=== PATIENT | female | born 1965 | race Caucasian/White ===

== ENCOUNTER → 2017-04-12 | Outpatient (CLI) | payer BC ==
[~2017-04-12] MED LIST: DIVA-18 PO; LAM1 PO; LINA5TAB PO
== END | disposition home or self-care (01) ==
LOC: MRI 12:47
PROVIDERS: ATTEND Family Medicine
DX: S83.512A Sprain of anterior cruciate ligament of left knee, initial encounter (principal); M94.262 Chondromalacia, left knee; X58.XXXA Exposure to other specified factors, initial encounter; M17.12 Unilateral primary osteoarthritis, left knee; Y93.89 Activity, other specified; Y92.89 Other specified places as the place of occurrence of the external cause; Y99.8 Other external cause status
CPT/HCPCS: 73721

== ENCOUNTER → 2017-05-24 | Outpatient (CLI) | payer BC | END | disposition home or self-care (01) | LOC: MAMMO 10:09 | PROVIDERS: ATTEND Internal Medicine | DX: Z12.31 Encounter for screening mammogram for malignant neoplasm of breast (principal) | CPT/HCPCS: G0202 ==

== ENCOUNTER → 2017-06-14 | Outpatient (CLI) | payer BC ==
[2017-06-14 12:54] LABS: BASOPHILS % 0.6 % (0.0-2.0); EOSINOPHILS % 1.8 % (0.0-5.0); HEMATOCRIT. 42.3 % (36.0-48.0); HEMOGLOBIN. 14.1 g/dL (12.0-16.0); MEAN CORPUSCULAR HEMOGLOBIN 31.5 pg (28.0-32.0); MEAN CORPUSCULAR VOLUME 94.3 fL (81.0-99.0); MEAN PLATELET VOLUME 6.5 fl (7.4-10.4); MONOCYTES % 6.6 % (2.0-8.0); PLATELET 369 x1000/uL (130-400); RED BLOOD CELL COUNT 4.48 mill/uL (4.2-5.4); RED CELL DISTRIBUTION WIDTH 13.6 % (11.6-14.6)
[2017-06-14 13:17] LABS: KETONES URINE NEGATIVE (NEGATIVE); LEUKOCYTE ESTERASE URINE NEGATIVE (NEGATIVE); NITRITE URINE NEGATIVE (NEGATIVE); OCCULT BLOOD URINE NEGATIVE (NEGATIVE); PROTEIN URINE NEGATIVE (NEGATIVE); SPECIFIC GRAVITY URINE 1.019 (1.005-1.030); UROBILINOGEN URINE 0.2 E.U./dL (0.2-1.0)
[2017-06-14 13:23] LABS: CLARITY URINE CLEAR (CLEAR); COLOR URINE YELLOW (YELLOW)
[2017-06-14 14:51] LABS: TRIOIODOTHYRONINE TOTAL 1.63 ng/ml (0.60-1.81)
[2017-06-15 02:14] LABS: CARBON DIOXIDE 31 mEq/L (21-32); CHLORIDE 103 mEq/L (98-107); HDL CHOLESTEROL 50 mg/dL (40-59); LDL CHOLESTEROL 141 mg/dL (5-100)
[2017-06-15 02:16] LABS: T4 FREE 1.15 ng/dL (0.76-1.46)
[2017-06-15 10:11] LABS: *CREATININE RANDOM URINE 95.5 mg/dL (Not Estab.); MICROALBUMIN RANDOM URINE 5.7 ug/mL (Not Estab.)
== END | disposition home or self-care (01) ==
LOC: LAB 11:57
PROVIDERS: ATTEND Internal Medicine
DX: Z00.01 Encounter for general adult medical examination with abnormal findings (principal); E11.9 Type 2 diabetes mellitus without complications; G47.33 Obstructive sleep apnea (adult) (pediatric)
CPT/HCPCS: 36415; 80053; 80165; 81003; 82043; 82306; 82465; 82570; 82607; 82746; 83036; 83718; 83721; 84439; 84443; 84480; 84481; 84550; 85025; 87086

== ENCOUNTER → 2018-03-12 | Outpatient (CLI) | payer BC ==
[2018-03-12 15:20] LABS: BASOPHILS % 0.3 % (0.0-2.0); CHLORIDE 101 mEq/L (98-107); EOSINOPHILS % 1.2 % (0.0-5.0); HEMATOCRIT. 42.3 % (36.0-48.0); HEMOGLOBIN. 14.1 g/dL (12.0-16.0); LYMPHOCYTES % 45.7 % (20.0-50.0); MEAN CORPUSCULAR HEMOGLOBIN 31.8 pg (28.0-32.0); MEAN CORPUSCULAR VOLUME 95.3 fL (81.0-99.0); MEAN PLATELET VOLUME 7.1 fl (7.4-10.4); NEUTROPHILS % 46.8 % (40.0-76.0); PLATELET 310 x1000/uL (130-400); RED BLOOD CELL COUNT 4.44 mill/uL (4.2-5.4); RED CELL DISTRIBUTION WIDTH 13.9 % (11.6-14.6)
[2018-03-12 15:31] LABS: CLARITY URINE CLEAR (CLEAR); COLOR URINE YELLOW (YELLOW); KETONES URINE TRACE (NEGATIVE); LDL CHOLESTEROL 168 mg/dL (5-100); LEUKOCYTE ESTERASE URINE NEGATIVE (NEGATIVE); NITRITE URINE NEGATIVE (NEGATIVE); OCCULT BLOOD URINE NEGATIVE (NEGATIVE); PH URINE 5.5 (4.5-8.0); PROTEIN URINE NEGATIVE (NEGATIVE); SPECIFIC GRAVITY URINE 1.025 (1.005-1.030); UROBILINOGEN URINE 0.2 E.U./dL (0.2-1.0)
[2018-03-12 15:33] LABS: HDL CHOLESTEROL 46 mg/dL (40-59); T4 FREE 1.04 ng/dL (0.76-1.46)
[2018-03-12 15:58] LABS: VITAMIN B12 SERUM 408 pg/mL (211-911)
[2018-03-14 13:11] LABS: *CREATININE RANDOM URINE 151.5 mg/dL (Not Estab.); MICROALBUMIN RANDOM URINE 7.6 ug/mL (Not Estab.)
== END | disposition home or self-care (01) ==
LOC: LAB 13:22
PROVIDERS: ATTEND Internal Medicine
DX: K43.9 Ventral hernia without obstruction or gangrene (principal); F31.77 Bipolar disorder, in partial remission, most recent episode mixed; E11.69 Type 2 diabetes mellitus with other specified complication
CPT/HCPCS: 36415; 80053; 80061; 80165; 81003; 82043; 82306; 82570; 82607; 83036; 84439; 84443; 84550; 85025; 87086

== ENCOUNTER → 2018-11-01 | Outpatient (CLI) | payer BC ==
[2018-11-01 09:06] LABS: CLARITY URINE CLEAR (CLEAR); COLOR URINE YELLOW (YELLOW); KETONES URINE NEGATIVE (NEGATIVE); LEUKOCYTE ESTERASE URINE NEGATIVE (NEGATIVE); NITRITE URINE NEGATIVE (NEGATIVE); OCCULT BLOOD URINE NEGATIVE (NEGATIVE); PROTEIN URINE NEGATIVE (NEGATIVE); SPECIFIC GRAVITY URINE 1.019 (1.005-1.030); UROBILINOGEN URINE 0.2 E.U./dL (0.2-1.0)
[2018-11-01 09:09] LABS: BASOPHILS % 0.6 % (0.0-2.0); EOSINOPHILS % 1.7 % (0.0-5.0); LYMPHOCYTES % 37.1 % (20.0-50.0); MEAN CORPUSCULAR HEMOGLOBIN 31.7 pg (28.0-32.0); MEAN PLATELET VOLUME 6.8 fl (7.4-10.4); MONOCYTES % 7.2 % (2.0-8.0); NEUTROPHILS % 53.4 % (40.0-76.0); PLATELET 306 x1000/uL (130-400); RED BLOOD CELL COUNT 4.42 mill/uL (4.2-5.4); RED CELL DISTRIBUTION WIDTH 13.9 % (11.6-14.6)
[2018-11-01 09:12] LABS: CHLORIDE 108 mEq/L (98-107)
[2018-11-01 09:21] LABS: HDL CHOLESTEROL 51 mg/dL (40-59); LDL CHOLESTEROL 150 mg/dL (5-100); T4 FREE 0.98 ng/dL (0.76-1.46)
[2018-11-01 09:53] LABS: VITAMIN B12 SERUM 404 pg/mL (211-911)
[2018-11-02 10:06] LABS: *CREATININE RANDOM URINE 110.1 mg/dL (Not Estab.); MICROALBUMIN RANDOM URINE 4.6 ug/mL (Not Estab.)
== END | disposition home or self-care (01) ==
LOC: LAB 08:31
PROVIDERS: ATTEND Internal Medicine
DX: E11.69 Type 2 diabetes mellitus with other specified complication (principal); K43.9 Ventral hernia without obstruction or gangrene
CPT/HCPCS: 36415; 80061; 80165; 82043; 82306; 82570; 82607; 83036; 84439; 84443; 84550

== ENCOUNTER → 2018-11-21 | Outpatient (CLI) | payer BC ==
[2018-11-21 13:18] LABS: CHLORIDE 105 mEq/L (98-107)
[2018-11-21 13:22] LABS: BASOPHILS % 0.4 % (0.0-2.0); EOSINOPHILS % 0.9 % (0.0-5.0); HEMATOCRIT. 42.9 % (36.0-48.0); HEMOGLOBIN. 14.4 g/dL (12.0-16.0); LYMPHOCYTES % 34.6 % (20.0-50.0); MEAN CORPUSCULAR VOLUME 95.4 fL (81.0-99.0); MEAN PLATELET VOLUME 6.7 fl (7.4-10.4); MONOCYTES % 6.5 % (2.0-8.0); NEUTROPHILS % 57.6 % (40.0-76.0); PLATELET 280 x1000/uL (130-400); RED CELL DISTRIBUTION WIDTH 13.9 % (11.6-14.6)
== END | disposition home or self-care (01) ==
LOC: LAB 12:46
PROVIDERS: ATTEND Psychiatry & Neurology Psychiatry
DX: F31.9 Bipolar disorder, unspecified (principal)
CPT/HCPCS: 36415; 80165

== ENCOUNTER → 2019-02-05 | Outpatient (CLI) | payer BC ==
[~2019-02-05] MED LIST changes: +REGADENOSON 0.4 MG/5 ML IV ONE
== END | disposition home or self-care (01) ==
LOC: NM 09:05
PROVIDERS: ATTEND Specialist
DX: I07.1 Rheumatic tricuspid insufficiency (principal); I27.20 Pulmonary hypertension, unspecified
CPT/HCPCS: 78452; 93017; 93306; A9500; J2785

== ENCOUNTER → 2020-08-26 | Outpatient (CLI) | payer BC ==
[~2020-08-26] MED LIST changes: -REGADENOSON 0.4 MG/5 ML IV ONE
[2020-08-26 09:48] LABS: BASOPHILS % 0.7 % (0.0-2.0); EOSINOPHILS % 1.4 % (0.0-5.0); HEMATOCRIT. 43.9 % (36.0-48.0); HEMOGLOBIN. 14.5 g/dL (12.0-16.0); MEAN CORPUSCULAR HEMOGLOBIN 31.4 pg (28.0-32.0); MEAN CORPUSCULAR VOLUME 94.7 fL (81.0-99.0); MEAN PLATELET VOLUME 6.7 fl (7.4-10.4); MONOCYTES % 5.5 % (2.0-8.0); NEUTROPHILS % 53.4 % (40.0-76.0); PLATELET 333 x1000/uL (130-400); RED BLOOD CELL COUNT 4.64 mill/uL (4.2-5.4); RED CELL DISTRIBUTION WIDTH 13.5 % (11.6-14.6)
[2020-08-26 09:52] LABS: CHLORIDE 106 mEq/L (98-107)
[2020-08-26 10:01] LABS: LDL CHOLESTEROL 172 mg/dL (5-100)
[2020-08-26 10:04] LABS: HDL CHOLESTEROL 58 mg/dL (40-59)
[2020-08-26 10:48] LABS: CLARITY URINE CLEAR (CLEAR); COLOR URINE YELLOW (YELLOW); KETONES URINE NEGATIVE (NEGATIVE); LEUKOCYTE ESTERASE URINE TRACE (NEGATIVE); NITRITE URINE NEGATIVE (NEGATIVE); OCCULT BLOOD URINE NEGATIVE (NEGATIVE); PROTEIN URINE NEGATIVE (NEGATIVE); SPECIFIC GRAVITY URINE 1.022 (1.005-1.030); UROBILINOGEN URINE 0.2 E.U./dL (0.2-1.0)
[2020-08-31 15:35] LABS: MICROALBUMIN RANDOM URINE 5.6 ug/mL (Not Estab.)
== END | disposition home or self-care (01) ==
LOC: LAB 08:37
PROVIDERS: ATTEND Internal Medicine Critical Care Medicine
DX: Z12.11 Encounter for screening for malignant neoplasm of colon (principal); Z00.00 Encounter for general adult medical examination without abnormal findings; Z11.52 Encounter for screening for COVID-19; E11.69 Type 2 diabetes mellitus with other specified complication; E03.9 Hypothyroidism, unspecified; R94.5 Abnormal results of liver function studies; E78.5 Hyperlipidemia, unspecified; D75.1 Secondary polycythemia
CPT/HCPCS: 36415; 80053; 80061; 81003; 82043; 82570; 83036; 84443; 85025; 86803

== ENCOUNTER → 2021-03-14 | Outpatient (CLI) | payer BC | END | disposition home or self-care (01) | LOC: LAB 13:58 | PROVIDERS: ATTEND Specialist | DX: K43.9 Ventral hernia without obstruction or gangrene (principal) | CPT/HCPCS: 36415; 82565; 84520 ==

== ENCOUNTER → 2021-03-15 | Outpatient (CLI) | payer BC ==
[~2021-03-15] MED LIST changes: +ALBUTEROL (0.083%) 2.5MG/3ML NEB ONE
== END | disposition home or self-care (01) ==
LOC: PF 13:05
PROVIDERS: ATTEND Internal Medicine Pulmonary Disease
DX: G47.33 Obstructive sleep apnea (adult) (pediatric) (principal); J45.909 Unspecified asthma, uncomplicated; R06.09 Other forms of dyspnea; Z20.822 Contact with and (suspected) exposure to COVID-19
CPT/HCPCS: 87426; 94060; 94727; 94729; Z7610

== ENCOUNTER → 2021-03-21 | Outpatient (CLI) | payer BC ==
[~2021-03-21] MED LIST changes: -ALBUTEROL (0.083%) 2.5MG/3ML NEB ONE; +BARIUM SULFATE 450ML ORAL SUSP ONE; +IOHEXOL-300 100 ML BOTTLE ONE
== END | disposition home or self-care (01) ==
LOC: CT 11:43
PROVIDERS: ATTEND Specialist
DX: K42.9 Umbilical hernia without obstruction or gangrene (principal); K43.9 Ventral hernia without obstruction or gangrene; I70.90 Unspecified atherosclerosis
CPT/HCPCS: 74177; Q9967

== ENCOUNTER → 2021-05-30 | Outpatient (CLI) | payer BC ==
[~2021-05-30] MED LIST changes: -BARIUM SULFATE 450ML ORAL SUSP ONE; -IOHEXOL-300 100 ML BOTTLE ONE
== END | disposition home or self-care (01) ==
LOC: RAD 10:15
PROVIDERS: ATTEND Internal Medicine Pulmonary Disease
DX: J98.11 Atelectasis (principal); G47.33 Obstructive sleep apnea (adult) (pediatric)
CPT/HCPCS: 71046

== ENCOUNTER → 2021-07-11 | Outpatient (CLI) | payer BC ==
[2021-07-11 08:12] LABS: PARTIAL THROMBOPLASTIN TIME 27.8 sec (23.4-31.0); PROTHROMBIN TIME 10.3 sec (9.6-11.0)
[2021-07-11 08:29] LABS: BASOPHILS % 0.4 % (0.0-2.0); EOSINOPHILS % 1.3 % (0.0-5.0); HEMATOCRIT. 41.4 % (36.0-48.0); HEMOGLOBIN. 13.8 g/dL (12.0-16.0); LYMPHOCYTES % 35.7 % (20.0-50.0); MEAN CORPUSCULAR HEMOGLOBIN 31.9 pg (28.0-32.0); MEAN CORPUSCULAR VOLUME 95.5 fL (81.0-99.0); MEAN PLATELET VOLUME 6.7 fl (7.4-10.4); MONOCYTES % 7.7 % (2.0-8.0); NEUTROPHILS % 54.9 % (40.0-76.0); PLATELET 332 x1000/uL (130-400); RED BLOOD CELL COUNT 4.33 mill/uL (4.2-5.4); RED CELL DISTRIBUTION WIDTH 13.3 % (11.6-14.6)
[2021-07-11 08:49] LABS: CHLORIDE 109 mEq/L (98-107)
[2021-07-11 09:09] LABS: HDL CHOLESTEROL 44 mg/dL (40-59)
[2021-07-11 09:11] LABS: LDL CHOLESTEROL 138 mg/dL (5-100)
[2021-07-11 09:30] LABS: CLARITY URINE CLEAR (CLEAR); COLOR URINE YELLOW (YELLOW); PH URINE 5.5 (4.5-8.0); SPECIFIC GRAVITY URINE 1.024 (1.005-1.030)
[2021-07-11 09:31] LABS: KETONES URINE NEGATIVE (NEGATIVE); LEUKOCYTE ESTERASE URINE NEGATIVE (NEGATIVE); NITRITE URINE NEGATIVE (NEGATIVE); OCCULT BLOOD URINE NEGATIVE (NEGATIVE); PROTEIN URINE NEGATIVE (NEGATIVE); UROBILINOGEN URINE 0.2 E.U./dL (0.2-1.0)
== END | disposition home or self-care (01) ==
LOC: LAB 07:16
DX: Z01.818 Encounter for other preprocedural examination (principal); E11.69 Type 2 diabetes mellitus with other specified complication; E78.2 Mixed hyperlipidemia
CPT/HCPCS: 36415; 80048; 80061; 81003; 83036; 85025

== ENCOUNTER → 2021-07-21 | Outpatient (CLI) | payer BC | END | disposition home or self-care (01) | LOC: CT 12:43 | PROVIDERS: ATTEND Internal Medicine Pulmonary Disease | DX: J98.4 Other disorders of lung (principal); K76.0 Fatty (change of) liver, not elsewhere classified; J45.909 Unspecified asthma, uncomplicated | CPT/HCPCS: 71250 ==

== ENCOUNTER → 2021-08-01 | Outpatient (CLI) | payer BC ==
[~2021-08-01] MED LIST changes: +ALBU90AE2 INH; +ARIP2TAB3 PO; +FLUT1BLS3 INH; +LAMO300T MT; +MONT10TA21 MT
== END | disposition home or self-care (01) ==
LOC: LAB 10:11
PROVIDERS: ATTEND Specialist
DX: Z20.822 Contact with and (suspected) exposure to COVID-19 (principal)
CPT/HCPCS: 87426

== ENCOUNTER 2021-08-02 06:01 | Inpatient (IN) | payer BC ==
[~2021-08-02] VITALS: Ht 154.9 cm; Wt 89.8 kg
[~2021-08-02 06:01] MED LIST changes: -ALBU90AE2 INH; -ARIP2TAB3 PO; -FLUT1BLS3 INH; -LAMO300T MT; -MONT10TA21 MT
[2021-08-02] MEDS ORDERED: LIDOCAINE HCL 1% 20ML VIAL (Pyxis) INJ ONE (06:28)
[2021-08-02] MEDS ORDERED: BUPIVACAINE HCL/PF 0.5% (5MG/ML) 10ML ONE (06:29)
[2021-08-02] MEDS ORDERED: POLYMYXIN B SULFATE 500000 UNITS/VIAL ONE (06:29)
[2021-08-02] MEDS ORDERED: SKIN ADHESIVE 0.7 GM EA TOP ONE (07:19)
[2021-08-02] MEDS ORDERED: PROPOFOL 200MG/20ML VIAL IV ONE (07:32)
[2021-08-02] MEDS ORDERED: MIDAZOLAM HCL 2 MG/2 ML VIAL ONE (07:32)
[2021-08-02] MEDS ORDERED: FENTANYL CITRATE/PF 50MCG/ML 2ML VIAL ONE (07:32)
[2021-08-02] MEDS ORDERED: ROCURONIUM BROMIDE 10MG/ML VIAL 5ML IV ONE ×2 (07:32→08:48)
[2021-08-02] MEDS ORDERED: ESMOLOL HCL 10MG/ML 10ML VIAL IV ONE (08:00)
[2021-08-02] MEDS ORDERED: FENTANYL CITRATE/PF 50MCG/ML 2ML VIAL IV PRN (08:15)
[2021-08-02] MEDS ORDERED: ONDANSETRON HCL 4MG/2ML INJ IV PRN ×2 (08:15→12:00)
[2021-08-02] MEDS ORDERED: MEPERIDINE HCL/PF 25MG/ML CPJ IV PRN (08:15)
[2021-08-02] MEDS ORDERED: HYDROMORPHONE HCL/PF 2MG/ML CPJ IV PRN (08:15)
[2021-08-02] MEDS ORDERED: HYDROMORPHONE HCL/PF 2MG/ML (OR) ONE (08:34)
[2021-08-02] MEDS ORDERED: KETOROLAC 30MG/ML VIAL ONE (08:54)
[2021-08-02] MEDS ORDERED: DEXAMETHASONE 4MG/ML 1ML VIAL ONE (08:54)
[2021-08-02] MEDS ORDERED: ONDANSETRON HCL 4MG/2ML INJ ONE (08:54)
[2021-08-02] MEDS ORDERED: LAMO300T MT (09:10)
[2021-08-02] MEDS ORDERED: ARIP2TAB3 PO (09:10)
[2021-08-02] MEDS ORDERED: FLUT1BLS3 INH (09:10)
[2021-08-02] MEDS ORDERED: MONT10TA21 MT (09:10)
[2021-08-02] MEDS ORDERED: ALBU90AE2 INH (09:10)
[2021-08-02] MEDS ORDERED: LABETALOL HCL 5MG/ML VIAL 20ML IV ONE (09:44)
[2021-08-02] MEDS ORDERED: PIPERACILLIN/TAZOBACTAM 3.375G in DEXT 5% WATER 50ML IV SCH (11:00)
[2021-08-02] MEDS ORDERED: NEOSTIGMINE METHYLSULFATE 1MG/ML 10 ML VIAL ONE (11:02)
[2021-08-02] MEDS ORDERED: GLYCOPYRROLATE 0.2 MG/ML 2ML VIAL ONE (11:02)
[2021-08-02] MEDS ORDERED: MORPHINE SULFATE 2 MG/ML CPJ (NOT FOR IM USE) IV PRN (12:00)
[2021-08-02 12:30] VITALS: BP 131/72
[2021-08-02 13:00] VITALS: BP 131/72
[2021-08-02] MEDS ORDERED: IPRATROPIUM/ALBUTEROL 0.5-3(2.5)MG/3ML NEB HHN PRN (14:30)
[2021-08-02] MEDS ORDERED: INFLUENZA VACCINE IM ONE (14:45)
[2021-08-02] MEDS ORDERED: PNEUMOCOCCAL VACCINE IM ONE (14:45)
[2021-08-02 15:42] LABS: HEMOGLOBIN. 13.4 g/dL (12.0-16.0); MEAN CORPUSCULAR HEMOGLOBIN 31.1 pg (28.0-32.0); MEAN CORPUSCULAR VOLUME 94.9 fL (81.0-99.0); MEAN PLATELET VOLUME 6.7 fl (7.4-10.4); PLATELET 330 x1000/uL (130-400); RED BLOOD CELL COUNT 4.32 mill/uL (4.2-5.4); RED CELL DISTRIBUTION WIDTH 13.7 % (11.6-14.6)
[2021-08-02] MEDS: ACETAMINOPHEN 650MG/20.3ML UDC PO SCH ×2 (15:53→19:02)
[2021-08-02] MEDS: KETOROLAC 30MG/ML VIAL IV SCH ×2 (15:54→19:02)
[2021-08-02] MEDS: FAMOTIDINE 20MG/2ML VIAL IV SCH (15:56)
[2021-08-02 15:58] LABS: CHLORIDE 109 mEq/L (98-107)
[2021-08-02 16:00] VITALS: BP 112/58
[2021-08-02 16:52] LABS: PLATELET ESTIMATE NORMAL
[2021-08-02 17:40] LABS: PROTHROMBIN TIME 10.4 sec (9.6-11.0)
[2021-08-02] MEDS: SODIUM CHLORIDE 0.45% 1,000 ML IV SCH (17:46)
[2021-08-02 17:49] VITALS: BP 118/64
[2021-08-02 20:00] VITALS: BP 129/75
[2021-08-02] MEDS: PIPERACILLIN/TAZOBACTAM 3.375 G in DEXTROSE 5% WATER 50 ML IV SCH (20:16)
[2021-08-02 22:57] LABS: CLARITY URINE TURBID (CLEAR); COLOR URINE YELLOW (YELLOW); KETONES URINE NEGATIVE (NEGATIVE); LEUKOCYTE ESTERASE URINE 1+ (NEGATIVE); NITRITE URINE NEGATIVE (NEGATIVE); OCCULT BLOOD URINE 2+ (NEGATIVE); PH URINE 5.5 (4.5-8.0); PROTEIN URINE TRACE (NEGATIVE); SPECIFIC GRAVITY URINE 1.029 (1.005-1.030); UROBILINOGEN URINE 0.2 E.U./dL (0.2-1.0)
[2021-08-03] VITALS: BP 99/54
[2021-08-03] MEDS: KETOROLAC 30MG/ML VIAL IV SCH ×4 (00:21→17:44)
[2021-08-03] MEDS: ACETAMINOPHEN 650MG/20.3ML UDC PO SCH ×4 (00:21→17:44)
[2021-08-03 04:00] VITALS: BP 138/75
[2021-08-03] MEDS: PIPERACILLIN/TAZOBACTAM 3.375 G in DEXTROSE 5% WATER 50 ML IV SCH ×3 (05:23→20:56)
[2021-08-03 07:40] LABS: CHLORIDE 107 mEq/L (98-107)
[2021-08-03 07:47] LABS: BASOPHILS % 0.2 % (0.0-2.0); EOSINOPHILS % 0.1 % (0.0-5.0); HEMATOCRIT. 37.1 % (36.0-48.0); HEMOGLOBIN. 12.5 g/dL (12.0-16.0); LYMPHOCYTES % 16.4 % (20.0-50.0); MEAN CORPUSCULAR HEMOGLOBIN 31.5 pg (28.0-32.0); MEAN CORPUSCULAR VOLUME 93.8 fL (81.0-99.0); MEAN PLATELET VOLUME 6.9 fl (7.4-10.4); MONOCYTES % 6.3 % (2.0-8.0); PLATELET 331 x1000/uL (130-400); RED BLOOD CELL COUNT 3.96 mill/uL (4.2-5.4); RED CELL DISTRIBUTION WIDTH 13.8 % (11.6-14.6)
[2021-08-03 07:54] LABS: LDL CHOLESTEROL 142 mg/dL (5-100)
[2021-08-03 07:56] LABS: HDL CHOLESTEROL 55 mg/dL (40-59); T4 FREE 1.19 ng/dL (0.76-1.46)
[2021-08-03 08:00] VITALS: BP 134/62
[2021-08-03] MEDS: MONTELUKAST SODIUM 10MG TABLET PO SCH (08:28)
[2021-08-03] MEDS: FAMOTIDINE 20MG/2ML VIAL IV SCH (08:28)
[2021-08-03] MEDS: ARIPIPRAZOLE 5MG TABLET PO SCH (08:29)
[2021-08-03] MEDS ORDERED: LAMOTRIGINE 300 MG PO SCH (09:00)
[2021-08-03] MEDS ORDERED: ALBUTEROL SULFATE INH SCH (09:00)
[2021-08-03] MEDS ORDERED: TRELEGY ELLIPTA ORI SCH (09:00)
[2021-08-03] MEDS ORDERED: LAMOTRIGINE 100MG TABLET PO SCH (10:00)
[2021-08-03] MEDS ORDERED: ALBUTEROL (0.083%) 2.5MG/3ML NEB HHN SCH (10:00)
[2021-08-03 12:00] VITALS: BP 167/82
[2021-08-03] MEDS ORDERED: NALOXONE HCL 0.4MG/ML VIAL IV PRN (13:45)
[2021-08-03 16:00] VITALS: BP 138/71
[2021-08-03 20:00] VITALS: BP_SYST 154; BP_SYST 168; BP_DIAS 54; BP_DIAS 69
[2021-08-04] VITALS: BP 152/59
[2021-08-04] MEDS: KETOROLAC 30MG/ML VIAL IV SCH ×3 (00:02→12:50)
[2021-08-04] MEDS: SODIUM CHLORIDE 0.45% 1,000 ML IV SCH (03:45)
[2021-08-04 04:00] VITALS: BP 140/74
[2021-08-04] MEDS: ACETAMINOPHEN 650MG/20.3ML UDC PO SCH ×3 (05:14→12:51)
[2021-08-04] MEDS: PIPERACILLIN/TAZOBACTAM 3.375 G in DEXTROSE 5% WATER 50 ML IV SCH (05:15)
[2021-08-04 07:45] LABS: BASOPHILS % 0.2 % (0.0-2.0); EOSINOPHILS % 1.6 % (0.0-5.0); HEMATOCRIT. 36.5 % (36.0-48.0); HEMOGLOBIN. 12.4 g/dL (12.0-16.0); LYMPHOCYTES % 19.6 % (20.0-50.0); MEAN CORPUSCULAR HEMOGLOBIN 32.4 pg (28.0-32.0); MEAN CORPUSCULAR VOLUME 95.2 fL (81.0-99.0); MEAN PLATELET VOLUME 6.9 fl (7.4-10.4); MONOCYTES % 4.7 % (2.0-8.0); NEUTROPHILS % 73.9 % (40.0-76.0); PLATELET 306 x1000/uL (130-400); RED BLOOD CELL COUNT 3.83 mill/uL (4.2-5.4); RED CELL DISTRIBUTION WIDTH 13.9 % (11.6-14.6)
[2021-08-04 08:11] LABS: CHLORIDE 107 mEq/L (98-107)
[2021-08-04] MEDS: MONTELUKAST SODIUM 10MG TABLET PO SCH (08:41)
[2021-08-04] MEDS: ARIPIPRAZOLE 5MG TABLET PO SCH (08:41)
[2021-08-04] MEDS ORDERED: LAMOTRIGINE 300 MG PO SCH (09:00)
[2021-08-04] MEDS ORDERED: NON FORMULARY PATIENT HOME MED XX SCH ×2 (09:00)
[2021-08-04] MEDS ORDERED: FAMOTIDINE 20MG TABLET PO SCH (09:00)
[2021-08-04] MEDS ORDERED: TRELEGY ELLIPTA ORI SCH (09:00)
[2021-08-04 12:06] VITALS: BP 160/88
[2021-08-04 12:50] VITALS: BP 160/88
== END 2021-08-04 13:58 | disposition home or self-care (01) | DRG 354 ==
LOC: OR 06:01 → 6EST 06:02
PROVIDERS: ADMIT Specialist; ATTEND Specialist
PROC: 0WUF4JZ Supplement Abdominal Wall with Synthetic Substitute, Percutaneous Endoscopic Approach (ICD-10-PCS; principal; 2021-08-02)
PROC: 5A09357 Assistance with Respiratory Ventilation, Less than 24 Consecutive Hours, Continuous Positive Airway Pressure (ICD-10-PCS; 2021-08-02)
DX: K43.2 Incisional hernia without obstruction or gangrene (principal); N39.0 Urinary tract infection, site not specified; C79.60 Secondary malignant neoplasm of unspecified ovary; R65.10 Systemic inflammatory response syndrome (SIRS) of non-infectious origin without acute organ dysfunction; G47.30 Sleep apnea, unspecified; J45.909 Unspecified asthma, uncomplicated; C55 Malignant neoplasm of uterus, part unspecified; F32.A Depression, unspecified; Z20.822 Contact with and (suspected) exposure to COVID-19; K66.0 Peritoneal adhesions (postprocedural) (postinfection); Z85.42 Personal history of malignant neoplasm of other parts of uterus; Z79.84 Long term (current) use of oral hypoglycemic drugs; Z79.899 Other long term (current) drug therapy; Z88.8 Allergy status to other drugs, medicaments and biological substances; Z91.09 Other allergy status, other than to drugs and biological substances
CPT/HCPCS: 36415; 71045; 80048; 80053; 80061; 81003; 82962; 83036; 84145; 84439; 84443; 85025; 86850; 86900; 87426; 88302; 93970; 94660; J1100; J1170; J1885; J2250; J2270; J2405; J2543; J2704; J2710; J3010; J3490; J7030; J7060; C1781

== ENCOUNTER → 2022-08-03 | Outpatient (CLI) | payer BC ==
[~2022-08-03] MED LIST changes: +ALBU90AE2 INH; +ARIP2TAB3 PO; -DIVA-18 PO; +FLUT1BLS3 INH; -LAM1 PO; +LAMO300T MT; -LINA5TAB PO; +MONT10TA21 MT
[2022-08-03 10:31] LABS: BASOPHILS % 0.5 % (0.0-2.0); EOSINOPHILS % 0.8 % (0.0-5.0); HEMATOCRIT. 42.3 % (36.0-48.0); HEMOGLOBIN. 14.8 g/dL (12.0-16.0); LYMPHOCYTES % 32.9 % (20.0-50.0); MEAN CORPUSCULAR HEMOGLOBIN 33.4 pg (28.0-32.0); MEAN CORPUSCULAR VOLUME 95.3 fL (81.0-99.0); MEAN PLATELET VOLUME 6.6 fl (7.4-10.4); MONOCYTES % 6.2 % (2.0-8.0); NEUTROPHILS % 59.6 % (40.0-76.0); PLATELET 354 x1000/uL (130-400); RED BLOOD CELL COUNT 4.44 mill/uL (4.2-5.4); RED CELL DISTRIBUTION WIDTH 13.5 % (11.6-14.6)
[2022-08-03 13:54] LABS: CHLORIDE 105 mEq/L (98-107)
[2022-08-03 14:05] LABS: T4 FREE 1.14 ng/dL (0.76-1.46)
== END | disposition home or self-care (01) ==
LOC: LAB 09:44
PROVIDERS: ATTEND Specialist
DX: I11.9 Hypertensive heart disease without heart failure (principal); E11.9 Type 2 diabetes mellitus without complications; E78.5 Hyperlipidemia, unspecified
CPT/HCPCS: 36415; 80053; 83036; 83880; 84439; 84443; 85025

== ENCOUNTER 2023-06-15 12:53 | Emergency (ER) | payer BC ==
[~2023-06-15] VITALS: Ht 154.9 cm; Wt 88.0 kg
[~2023-06-15 12:53] MED LIST changes: +MONT-46 MT; -MONT10TA21 MT
[2023-06-15 13:01] VITALS: O2SAT 99
[2023-06-15 14:00] LABS: BASOPHILS % 1.1 % (0.0-2.0); HEMATOCRIT. 42.3 % (36.0-48.0); HEMOGLOBIN. 14.1 g/dL (12.0-16.0); LYMPHOCYTES % 36.2 % (20.0-50.0); MEAN CORPUSCULAR HEMOGLOBIN 32.1 pg (28.0-32.0); MEAN CORPUSCULAR HGB CONC 33.4 g/dL (31.0-37.0); MEAN CORPUSCULAR VOLUME 96.1 fL (81.0-99.0); MEAN PLATELET VOLUME 7.2 fl (7.4-10.4); MONOCYTES % 6.4 % (2.0-8.0); NEUTROPHILS % 54.3 % (40.0-76.0); PLATELET 414 x1000/uL (130-400); RED BLOOD CELL COUNT 4.41 mill/uL (4.2-5.4); RED CELL DISTRIBUTION WIDTH 13.6 % (11.6-14.6); WHITE BLOOD COUNT 9.4 x1000/uL (4.5-11.0)
[2023-06-15] MEDS ORDERED: IBUPROFEN 600MG TABLET PO ONE (14:15)
[2023-06-15 14:23] LABS: ALANINE AMINOTRANSFERASE 17 IU/L (10-49); ALBUMIN 4.5 g/dL (3.2-4.8); ASPARTATE AMINOTRANSFERASE 20 IU/L (<34); BILIRUBIN TOTAL 0.3 mg/dL (0.1-1.0); CALCIUM 9.6 mg/dL (8.7-10.4); CARBON DIOXIDE 28 mEq/L (21-32); CHLORIDE 104 mEq/L (98-107); CREATININE 0.8 mg/dL (0.6-1.0); GLUCOSE 92 mg/dL (70-105); POTASSIUM 3.5 mEq/L (3.5-5.1); PROTEIN TOTAL 8.2 g/dL (6.0-8.3); SODIUM 142 mEq/L (136-145); UREA NITROGEN BLOOD 13 mg/dL (9-23)
[2023-06-15 14:53] LABS: TROPONIN I HIGH SENSITIVITY < 4 ng/L (3.0-34)
[2023-06-15 16:03] VITALS: BP 145/66; PULSE 94; RESP 16; TEMP 98.5
[2023-06-15] MEDS ORDERED: IBUP-2029 MT (16:25)
== END 2023-06-15 17:11 | disposition home or self-care (01) ==
LOC: ER 13:01
DX: R09.1 Pleurisy (principal); I10 Essential (primary) hypertension; Z79.899 Other long term (current) drug therapy; Z20.822 Contact with and (suspected) exposure to COVID-19
CPT/HCPCS: 99285; 71045; 87426; 80053; 83880; 85025; 84484; 36415; 93005; C9803

== ENCOUNTER → 2023-08-28 | Outpatient (CLI) | payer BC ==
[~2023-08-28] MED LIST changes: +IBUP-2029 MT
[2023-08-28 08:08] LABS: BASOPHILS % 0.5 % (0.0-2.0); EOSINOPHILS % 1.1 % (0.0-5.0); HEMATOCRIT. 42.7 % (36.0-48.0); HEMOGLOBIN. 14.3 g/dL (12.0-16.0); LYMPHOCYTES % 28.2 % (20.0-50.0); MEAN CORPUSCULAR HEMOGLOBIN 32.2 pg (28.0-32.0); MEAN CORPUSCULAR HGB CONC 33.5 g/dL (31.0-37.0); MEAN CORPUSCULAR VOLUME 96.3 fL (81.0-99.0); MEAN PLATELET VOLUME 6.5 fl (7.4-10.4); MONOCYTES % 6.3 % (2.0-8.0); NEUTROPHILS % 63.9 % (40.0-76.0); PLATELET 360 x1000/uL (130-400); RED BLOOD CELL COUNT 4.44 mill/uL (4.2-5.4); RED CELL DISTRIBUTION WIDTH 13.4 % (11.6-14.6); WHITE BLOOD COUNT 8.1 x1000/uL (4.5-11.0)
[2023-08-28 08:36] LABS: ALANINE AMINOTRANSFERASE 18 IU/L (10-49); ASPARTATE AMINOTRANSFERASE 19 IU/L (<34); BILIRUBIN TOTAL 0.4 mg/dL (0.1-1.0); CALCIUM 9.5 mg/dL (8.7-10.4); CARBON DIOXIDE 30 mEq/L (21-32); CHLORIDE 103 mEq/L (98-107); CHOLESTEROL 251 mg/dL (<200); CREATININE 0.7 mg/dL (0.6-1.0); DIGOXIN 0.2 ng/mL (0.8-2.0); GLUCOSE 104 mg/dL (70-105); HDL CHOLESTEROL 48 mg/dL (>65); LDL CHOLESTEROL 171 mg/dL (5-100); POTASSIUM 3.9 mEq/L (3.5-5.1); SODIUM 138 mEq/L (136-145); THYROID STIMULATING HORMONE 1.32 uIU/mL (0.55-4.78); TRIGLYCERIDE 150 mg/dL (0-150); UREA NITROGEN BLOOD 9 mg/dL (9-23)
== END | disposition home or self-care (01) ==
LOC: LAB 07:49
PROVIDERS: ATTEND Specialist
DX: I10 Essential (primary) hypertension (principal); E11.9 Type 2 diabetes mellitus without complications; E78.5 Hyperlipidemia, unspecified
CPT/HCPCS: 36415; 80053; 80061; 80162; 82306; 83036; 83735; 83880; 84443; 85025

== ENCOUNTER → 2024-04-09 | Outpatient (CLI) | payer BC ==
[~2024-04-09] MED LIST changes: -ALBU90AE2 INH; +ALBU90AE3 INH
[2024-04-09 07:57] LABS: BASOPHILS % 0.4 % (0.0-2.0); EOSINOPHILS % 1.4 % (0.0-5.0); HEMATOCRIT. 43.4 % (36.0-48.0); HEMOGLOBIN. 14.3 g/dL (12.0-16.0); MEAN CORPUSCULAR HEMOGLOBIN 31.5 pg (28.0-32.0); MEAN CORPUSCULAR HGB CONC 32.9 g/dL (31.0-37.0); MEAN CORPUSCULAR VOLUME 95.9 fL (81.0-99.0); MEAN PLATELET VOLUME 6.6 fl (7.4-10.4); MONOCYTES % 6.3 % (2.0-8.0); NEUTROPHILS % 58.9 % (40.0-76.0); PLATELET 371 x1000/uL (130-400); RED BLOOD CELL COUNT 4.53 mill/uL (4.2-5.4); WHITE BLOOD COUNT 8.2 x1000/uL (4.5-11.0)
[2024-04-09 08:07] LABS: CHLORIDE 101 mEq/L (98-107); POTASSIUM 3.8 mEq/L (3.5-5.1); SODIUM 138 mEq/L (136-145)
[2024-04-09 08:08] LABS: CALCIUM 10.1 mg/dL (8.7-10.4); CARBON DIOXIDE 30 mEq/L (21-32)
[2024-04-09 08:13] LABS: CREATININE 0.9 mg/dL (0.6-1.0); GLUCOSE 102 mg/dL (70-105); TRIGLYCERIDE 182 mg/dL (0-150)
[2024-04-09 08:14] LABS: LDL CHOLESTEROL 189 mg/dL (5-100); UREA NITROGEN BLOOD 10 mg/dL (9-23)
[2024-04-09 08:15] LABS: ALANINE AMINOTRANSFERASE 28 IU/L (10-49); ALBUMIN 4.6 g/dL (3.2-4.8); ASPARTATE AMINOTRANSFERASE 25 IU/L (<34); BILIRUBIN TOTAL 0.4 mg/dL (0.1-1.0); CHOLESTEROL 238 mg/dL (<200); HDL CHOLESTEROL 48 mg/dL (>65); THYROID STIMULATING HORMONE 1.86 uIU/mL (0.55-4.78)
== END | disposition home or self-care (01) ==
LOC: LAB 07:25
PROVIDERS: ATTEND Specialist
DX: I10 Essential (primary) hypertension (principal); E11.9 Type 2 diabetes mellitus without complications; E78.5 Hyperlipidemia, unspecified
CPT/HCPCS: 36415; 80053; 80061; 82306; 83036; 83735; 83880; 84439; 84443; 84481; 85025

== ENCOUNTER → 2024-12-10 | Outpatient (CLI) | payer BC ==
[2024-12-10 07:54] LABS: BASOPHILS % 0.4 % (0.0-2.0); EOSINOPHILS % 1.6 % (0.0-5.0); HEMATOCRIT. 40.9 % (36.0-48.0); LYMPHOCYTES % 32.8 % (20.0-50.0); MEAN CORPUSCULAR HEMOGLOBIN 32.1 pg (28.0-32.0); MEAN CORPUSCULAR HGB CONC 34.1 g/dL (31.0-37.0); MEAN CORPUSCULAR VOLUME 94.2 fL (81.0-99.0); MEAN PLATELET VOLUME 6.7 fl (7.4-10.4); NEUTROPHILS % 58.2 % (40.0-76.0); PLATELET 374 x1000/uL (130-400); RED BLOOD CELL COUNT 4.34 mill/uL (4.2-5.4); RED CELL DISTRIBUTION WIDTH 14.2 % (11.6-14.6); WHITE BLOOD COUNT 6.7 x1000/uL (4.5-11.0)
[2024-12-10 07:55] LABS: CHLORIDE 101 mEq/L (98-107); POTASSIUM 3.8 mEq/L (3.5-5.1); SODIUM 139 mEq/L (136-145)
[2024-12-10 07:56] LABS: CALCIUM 9.6 mg/dL (8.7-10.4); CARBON DIOXIDE 31 mEq/L (21-32)
[2024-12-10 08:01] LABS: CREATININE 0.9 mg/dL (0.6-1.0); GLUCOSE 108 mg/dL (70-105); TRIGLYCERIDE 137 mg/dL (0-150); UREA NITROGEN BLOOD 10 mg/dL (9-23)
[2024-12-10 08:02] LABS: LDL CHOLESTEROL 176 mg/dL (5-100)
[2024-12-10 08:03] LABS: ALANINE AMINOTRANSFERASE 36 IU/L (10-49); ALBUMIN 4.6 g/dL (3.2-4.8); ASPARTATE AMINOTRANSFERASE 27 IU/L (<34); BILIRUBIN TOTAL 0.4 mg/dL (0.1-1.0); CHOLESTEROL 230 mg/dL (<200); HDL CHOLESTEROL 43 mg/dL (>65); PROTEIN TOTAL 7.2 g/dL (6.0-8.3)
[2024-12-10 08:06] LABS: THYROID STIMULATING HORMONE 2.42 uIU/mL (0.55-4.78)
[2024-12-11 06:10] LABS: MICROALBUMIN RANDOM URINE 17.3 ug/mL (Not Estab.)
== END | disposition home or self-care (01) ==
LOC: LAB 07:15
DX: E11.65 Type 2 diabetes mellitus with hyperglycemia (principal); E11.59 Type 2 diabetes mellitus with other circulatory complications; E11.69 Type 2 diabetes mellitus with other specified complication; I15.2 Hypertension secondary to endocrine disorders; E78.5 Hyperlipidemia, unspecified; E66.812 Obesity, class 2; E66.01 Morbid (severe) obesity due to excess calories; G47.33 Obstructive sleep apnea (adult) (pediatric); Z68.38 Body mass index [BMI] 38.0-38.9, adult
CPT/HCPCS: 36415; 80053; 80061; 82043; 82570; 83036; 84443; 85025